=== PATIENT | female | born 1970 | race Caucasian/White ===

== ENCOUNTER 2017-01-19 19:51 | Emergency (ER) | payer OTHER ==
--- NOTE | 2017-01-19 20:22 | ERPHSYRPT ---
- History of Present Illness Time Seen by Provider: 01/19/17 20:15 Source: patient Exam Limitations: clinical condition Patient Subjective Stated Complaint: pt c/o pain and burning with urination. began approx 6 days ago and pain has increased since. states she has begun having pain in her abd today. Triage Nursing Assessment: pt alert and oriented, asnwers questions approp. pt ambulatory with steady gait noted. respirations nonlabored with lungs cta. skin pink warm and dry. urine straw colored and cloudy.abd soft and nontender with bowel sounds present in all 4 quads. Physician History: PATIENT COMPLAINS OF DYSURIA, FREQUENCY AND URGENCY FOR 6 DAYS ASSOCIATED WITH ABDOMINAL PRESSURE. DENIES FLANK PAIN, FEVER OR CHILLS. Timing/Duration: day(s) Activites at Onset: none Quality: pressure Onset Location: suprapubic Pain Radiation: none Severity of Pain-Max: moderate Severity of Pain-Current: moderate Prior abdominal problems: none Sexual intercourse history: non-contributory Modifying Factors: Improves With: urinating Associated Symptoms: dysuria, urinary frequency Allergies/Adverse Reactions: lorazepam [From Ativan] Allergy (Verified 01/19/17 20:15) Home Medications: Alprazolam 1 mg [Xanax 1 mg] 1 mg PO BIDPRN PRN 08/14/16 [History] Oxycodone HCl 10 mg PO Q4-6HPRN PRN 08/14/16 [History] Hx Tetanus, Diphtheria Vaccination/Date Given: No (unknown) Hx Influenza Vaccination/Date Given: No Hx Pneumococcal Vaccination/Date Given: No - Review of Systems Constitutional: No Fever, No Chills Eyes: No Symptoms Ears, Nose, & Throat: No Symptoms Respiratory: No Symptoms, No Cough, No Dyspnea Cardiac: No Symptoms, No Chest Pain, No Edema, No Syncope Abdominal/Gastrointestinal: No Symptoms, No Abdominal Pain, No Nausea, No Vomiting, No Diarrhea Genitourinary Symptoms: Frequency, Urgency, No Dysuria Musculoskeletal: No Symptoms, No Back Pain, No Neck Pain Skin: No Symptoms, No Rash Neurological: No Symptoms, No Dizziness, No Focal Weakness, No Sensory Changes Psychological: No Symptoms Endocrine: No Symptoms All Other Systems: Reviewed and Negative - Past Medical History Pertinent Past Medical History: Yes Neurological History: Migraines ENT History: Other Cardiac History: Other Respiratory History: No Pertinent History Endocrine Medical History: No Pertinent History Musculoskeletal History: Fibromyalgia GI Medical History: No Pertinent History Psycho-Social History: Anxiety Other Medical History: PVC, TACHYCARDIA, ARRHYTHMIA - Past Surgical History Past Surgical History: Yes Gastrointestinal: Cholecystectomy Musculoskeletal: Orthopedic Surgery Other Surgical History: tendon release lt foot and leg, perirectal cyst removal - Social History Smoking Status: Current every day smoker How long have you smoked: 30 yrs Exposure to second hand smoke: Yes Drug Use: none Patient Lives Alone: No - Female History Hx Last Menstrual Period: 01/01/17 - Nursing Vital Signs Nursing Vital Signs: Initial Vital Signs Temperature 99.0 F Temperature Source Oral Pulse Rate 84 Respiratory Rate 16 Blood Pressure [Right Arm] 124/64 Pain Intensity 4 - Physical Exam General Appearance: no apparent distress, alert Eye Exam: PERRL/EOMI, eyes nml inspection Ears, Nose, Throat Exam: normal ENT inspection, TMs normal, pharynx normal, moist mucous membranes Neck Exam: normal inspection, non-tender, supple, full range of motion Respiratory Exam: normal breath sounds, lungs clear, No respiratory distress Cardiovascular Exam: regular rate/rhythm, normal heart sounds, normal peripheral pulses Gastrointestinal/Abdomen Exam: soft, normal bowel sounds, tenderness ( SUPRAPUBIC TENDERNESS), No mass Back Exam: normal inspection, normal range of motion, CVA tenderness (MINIMAL RIGHT CVA TENDERNESS), No vertebral tenderness Extremity Exam: normal inspection, normal range of motion, pelvis stable Neurologic Exam: alert, oriented x 3, cooperative, service desk analyst II-XII nml as tested, normal mood/affect, sensation nml, No motor deficits Skin Exam: normal color, warm, dry Lymphatic Exam: No adenopathy SpO2 Interpretation: normal SpO2: 100 Oxygen Delivery: Room Air Ordered Tests: Active Orders 24 hr Category Date Time Status Clean Catch Urine Specimen STAT Care 01/19/17 20:00 Active IV Insertion STAT Care 01/19/17 20:12 Active CBC W DIFF Stat Lab 01/19/17 20:45 Completed CULTURE,URINE Stat Lab 01/19/17 21:00 Received UA W/ MICROSCOPIC Stat Lab 01/19/17 21:00 Completed Medication Summary Discontinued Medications Generic Name Dose Route Start Last Admin Trade Name Freq PRN Reason Stop Dose Admin Ceftriaxone Sodium/Dextrose 1 g in 50 mls @ 100 mls/hr 01/19/17 21:37 21:45 Rocephin 1 Gm-D5w 50 Ml Bag IV 01/19/17 22:06 100 mls/hr STAT ONE Administration Sodium Chloride 1,000 mls @ 999 mls/hr 01/19/17 21:37 01/19/17 21:45 Sodium Chloride 0.9% 1000 Ml IV 01/19/17 22:37 999 mls/hr .Q1H1M STA Administration Sodium Chloride Confirm 01/19/17 21:38 Sodium Chloride 0.9% 1000 Ml Administered 01/19/17 21:39 Dose 1,000 mls @ ud .ROUTE .STK-MED ONE Ceftriaxone Sodium/Dextrose Confirm 01/19/17 21:38 Rocephin 1 Gm-D5w 50 Ml Bag Administered 01/19/17 21:39 Dose 1 g in 50 mls @ ud IV .STK-MED ONE Lab/Rad Data: Laboratory Result Diagrams 01/19/17 20:45 Laboratory Results 01/19/17 01/19/17 Range/Units 21:00 20:45 WBC 11.4 H (4.0-10.5) K/mm3 RBC 4.87 (4.1-5.4) M/mm3 Hgb 15.9 (12.0-16.0) gm/dl Hct 46.7 (35-47) % MCV 95.9 (78-100) fl MCH 32.6 H (26-32) pg MCHC 34.0 (32-36) g/dl RDW 14.7 H (11.5-14.0) % Plt Count 222 (150-450) K/mm3 MPV 12.7 H (6-9.5) fl Gran % 76.1 H (36.0-66.0) % Lymphocytes % 13.4 L (24.0-44.0) % Monocytes % 9.2 (0.0-12.0) % Eosinophils % 1.1 (0.00-5.0) % Basophils % 0.2 (0.0-0.4) % Basophils # 0.02 (0-0.4) Ur Collection Type CLEAN CATCH Urine Color YELLOW (YELLOW) Urine Appearance CLOUDY (CLEAR) Urine pH 6.0 (5-6) Ur Specific [place] 1.015 (1.005-1.025) Urine Protein 30 (Negative) Urine Ketones NEGATIVE (NEGATIVE) Urine Blood 250 (0-5) Fabiano/ul Urine Nitrite POSITIVE (NEGATIVE) Urine Bilirubin NEGATIVE (NEGATIVE) Urine Urobilinogen NORMAL (0-1) mg/dL Ur Leukocyte Esterase 2+ (NEGATIVE) Urine Microscopic RBC 5-10 (0-2) /HPF Urine Microscopic WBC >100 (0-5) /HPF Ur Epithelial Cells FEW (FEW) /HPF Urine Bacteria MODERATE (NEGATIVE) /HPF Urine Glucose NEGATIVE (NEGATIVE) mg/dL Slides for Path Review YES Specimen Received 01/19/17 2100 - Progress Progress Note: 01/19/17 23:10 PATIENT GIVEN 1 GM ROCEPHIN IVPB Counseled pt/family regarding: lab results, diagnosis, need for follow-up - Departure Time of Disposition: 23:25 Departure Disposition: Home Clinical Impression: ACUTE CYSTITIS Condition: Stable Critical Care Time: No Additional Instructions: ANTIBIOTIC BACTRIM DS TWICE DAILY FOR 10 DAYS. PYRIDIUM 100MG AFTER MEALS FOR 2 DAYS. DIFLUCAN 150MG DAILY FOR 3 DAYS AFTER COMPLETION OF ANTIBIOTICS. Prescriptions: Fluconazole [Diflucan ] 150 mg PO DAILY #3 tablet Phenazopyridine HCl [Pyridium] 100 mg PO AC #6 tablet Smz/Tmp Ds Tablet [Bactrim Ds Tablet] 1 udtab PO BID #20 tablet
[2017-01-19 20:58] LABS: BASOPHIL % 0.2 % (0.0-0.4); Eosinophil % 1.1 % (0.00-5.0); Granulocytes % 76.1 % (36.0-66.0); Lymphocytes % 13.4 % (24.0-44.0); Mean Cell Volume 95.9 fl (78-100); Mean Corpuscular Hemoglobin 32.6 pg (26-32); Mean Platelet Volume 12.7 fl (6-9.5); Monocytes % 9.2 % (0.0-12.0); Platelet Count 222 K/mm3 (150-450); Red Blood Count 4.87 M/mm3 (4.1-5.4); Red Cell Distribution Width 14.7 % (11.5-14.0); White Blood Count 11.4 K/mm3 (4.0-10.5)
[2017-01-19 21:31] LABS: Collection Type CLEAN CATCH
[2017-01-19 21:32] LABS: Bilirubin NEGATIVE (NEGATIVE); Blood 250 Ery/ul (0-5); COMPLETE URINE MICROSCOPIC? YES; Glucose NEGATIVE (NEGATIVE); Leukocyte Esterase 2+ (NEGATIVE); WBC >100 /HPF (0-5)
[2017-01-19 21:33] LABS: ADD URINE CULTURE? YES (NO); Bacteria MODERATE /HPF (NEGATIVE); Epithelial Cells FEW /HPF (FEW)
[2017-01-19] MEDS ORDERED: ROCEPHIN 1 Gm-D5w 50 ml Bag** 1 G/50 ML IVPB IV ONE ×2 (21:37→21:38)
[2017-01-19] MEDS ORDERED: Sodium Chloride 0.9% 1000 ML 1,000 ML IV STA (21:37)
[2017-01-19] MEDS ORDERED: Sodium Chloride 0.9% 1000 ML 1,000 ML ONE (21:38)
[2017-01-19 23:14] VITALS: O2SAT 100
[2017-01-19 23:25] VITALS: BP 121/65; PULSE 94
== END 2017-01-19 23:28 | disposition home or self-care (01) ==
LOC: ED 19:51
DX: N30.00 Acute cystitis without hematuria (principal); R30.0 Dysuria; R35.0 Frequency of micturition; R39.15 Urgency of urination
CPT/HCPCS: 36000; 36415; 81000; 85025; 87077; 87086; 87186; 96360; 99284; J0696

== ENCOUNTER 2022-01-13 07:38 | Day surgery (SDC) | payer OTHER ==
[~2022-01-13 07:38] MED LIST: ASTRINGYN 8 GM TP ONE; XYLOCAINE 1%/Epi 1:100000 MDV 20 ML ONE
[2022-01-13] MEDS ORDERED: Lactated Ringers 1,000 ML IV SCH (08:00)
[2022-01-13] MEDS ORDERED: CEFAZOLIN 2 GM-D5W BAG** 2 GM/50 ML ML IV SCH (08:00)
[2022-01-13] MEDS ORDERED: CEFAZOLIN 2 GM-D5W BAG** 2 GM/50 ML ML IV ONE (08:19)
[2022-01-13] MEDS ORDERED: Lactated Ringers 1,000 ML IV ONE (08:19)
[2022-01-13 08:47] LABS: ALBUMIN 3.8 g/dL (3.5-5.0); ALKALINE PHOSPHATASE 62 U/L (38-126); ANION GAP 9.5 MEQ/L (5-15); BLOOD UREA NITROGEN 11 mg/dL (7-17); CHLORIDE 108 mmol/L (98-107); Calcium 9.2 mg/dL (8.4-10.2); Carbon Dioxide 25 mmol/L (22-30); Creatinine 1 0.67 mg/dL (0.52-1.04); EST GLOMERULAR FILTRATION RATE > 60.0 ML/MIN; Glucose 98 mg/dL (74-106); Potassium 4.1 mmol/L (3.5-5.1); SGOT/AST 21 U/L (14-36); SGPT/ALT 16 U/L (0-35); SODIUM 138 mmol/L (137-145); Total Protein 6.6 g/dL (6.3-8.2)
[2022-01-13] MEDS ORDERED: Zofran 4 MG/2 ML VIAL ONE (09:52)
[2022-01-13] MEDS ORDERED: Xylocaine-Mpf 2% 5 Ml Vial ONE (09:52)
[2022-01-13] MEDS ORDERED: DIPRIVAN 200 MG/20 ML IV ONE (09:52)
[2022-01-13] MEDS ORDERED: Decadron 4 MG INJ ONE ×2 (09:52→09:54)
[2022-01-13] MEDS ORDERED: SUBLIMAZE 100 MCG/2 ML ONE (09:53)
[2022-01-13 11:09] VITALS: O2SAT 99
[2022-01-13 11:16] VITALS: BP 126/72; PULSE 77
--- NOTE | 2022-01-14 13:38 | OP ---
SURGERY DATE/TIME: 01/13/2022 0951 PREOPERATIVE DIAGNOSIS: Severe cervical dysplasia. POSTOPERATIVE DIAGNOSIS: Severe cervical dysplasia. PROCEDURE: Loop electrosurgical excision procedure (LEEP). SURGEON: John Bergeron D.O. FOLDER INSPECTOR: Tara Villegas surgical supplies sterilizer. ANESTHESIA: General. ESTIMATED BLOOD LOSS: Minimal. COMPLICATIONS: None. INDICATIONS: The risks, benefits, indications and alternatives of the procedure were reviewed with the patient prior to procedure. The patient understood the risk of infection, bleeding, bowel injury, bladder injury, ureteral injury, uterine perforation and cervical incompetence associated with this procedure and desires to have this procedure as a possible means to alleviate her current medical condition. DESCRIPTION OF PROCEDURE AND FINDINGS: At this point the patient is taken to the operating room, given general sedation, placed in the dorsal lithotomy position, prepped and draped in the usual sterile fashion. A coated speculum is then placed in the patient's vagina and the cervix was then circumferentially injected with 1% lidocaine with epinephrine and approximately 10 cc were used. At this point the loop instrument was used to excise the ectocervical portion from a right to left motion with an in depth of 7 to 8 mm excision. An additional 2 to 3 mm of endocervical tissue was excised in a similar fashion. From this point hemostasis was obtained by placing the loop dive supervisor ball on the surface of the cervix with further hemostasis. From this point, all instruments were then removed from the patient's vaginal region. The patient was taken out of the dorsal lithotomy position and was then taken to the recovery room in stable condition. All instruments and laps were accounted for x2.
== END 2022-01-13 11:18 | disposition home or self-care (01) ==
LOC: SDC 07:38
PROVIDERS: ATTEND Obstetrics & Gynecology
DX: D06.9 Carcinoma in situ of cervix, unspecified (principal)
CPT/HCPCS: 36415; 80053; 81025; J0690; J1100; J2405; J2704; J3010; A9270-GY

== ENCOUNTER 2023-07-13 06:28 | Day surgery (SDC) | payer OTHER ==
[2023-07-13 06:54] LABS: HCG URINE TEST NEGATIVE (NEGATIVE)
[2023-07-13] MEDS ORDERED: Lactated Ringers 1,000 ML IV SCH (07:00)
[2023-07-13] MEDS ORDERED: CEFAZOLIN 2 GM-D5W BAG** 2 GM/50 ML ML IV SCH (07:00)
[2023-07-13] MEDS ORDERED: Xylocaine-Mpf 2% 5 Ml Vial ONE (07:02)
[2023-07-13] MEDS ORDERED: DIPRIVAN 200 MG/20 ML IV ONE (07:02)
[2023-07-13] MEDS ORDERED: Decadron 4 MG INJ ONE (07:02)
[2023-07-13] MEDS ORDERED: Zofran 4 MG/2 ML VIAL ONE (07:02)
[2023-07-13 07:13] VITALS: RESP 16; O2SAT 99
[2023-07-13] MEDS ORDERED: SUBLIMAZE 100 MCG/2 ML ONE (08:08)
[2023-07-13] MEDS ORDERED: TORAdol 30 mg Injection ONE (08:31)
[2023-07-13 09:22] VITALS: BP 134/97; PULSE 81; TEMP 97.9
--- NOTE | 2023-07-14 09:28 | OP ---
SURGERY DATE/TIME: 07/13/2023 0813 PREOPERATIVE DIAGNOSIS: Abnormal uterine bleeding. POSTOPERATIVE DIAGNOSIS: Abnormal uterine bleeding. PROCEDURE: Hysteroscopy D&C. SURGEON: John Bergeron D.O. LAMINATING MACHINE OPERATOR: Sherie Ordoñez surgical instrument repair specialist. ANESTHESIA: General. ESTIMATED BLOOD LOSS: Minimal. COMPLICATIONS: None. INDICATIONS: The risks, benefits, indications and alternatives of the procedure were reviewed with the patient prior to procedure. The patient understood the risk of infection, bleeding, bowel injury, bladder injury, ureteral injury and uterine perforation associated with this surgery and desires to have this surgery as a possible means to alleviate her current medical condition. DESCRIPTION OF PROCEDURE AND FINDINGS: At this point the patient is taken to the operating room, given general sedation, placed in dorsal lithotomy position, prepped and draped in the usual sterile fashion. A weighted speculum is then placed into the patient's vagina and the anterior lip of the cervix is grasped with a single tooth tenaculum. Endocervical dilators were advanced through the endocervical canal as a means to dilate the cervix and a 5 mm hysteroscope was then placed in through the endocervical region towards the fundal region where visualization appeared to be within normal limits with no gross abnormalities that were noted. From this point the hysteroscope was removed and the curette was then placed into the fundus of the uterus and curettage was performed in all quadrants of the uterus retrieving a mild to moderate amount of tissue. At this point hemostasis was obtained. From this point, all instruments were then removed from the patient's vaginal region. The patient was then taken out of the dorsal lithotomy position, was taken out of anesthesia and was then taken to the recovery room in stable condition. All instruments and laps were accounted for x2.
== END 2023-07-13 09:39 | disposition home or self-care (01) ==
LOC: SDC 06:28
PROVIDERS: ATTEND Obstetrics & Gynecology
DX: N93.9 Abnormal uterine and vaginal bleeding, unspecified (principal)
CPT/HCPCS: 81025; J0690; J1100; J1885; J2405; J2704; J3010